=== PATIENT | female | born 1975 | race Caucasian/White ===

== ENCOUNTER 2020-03-23 12:45 | Outpatient (CLI) | payer OTHER, SELFPAY ==
[2020-03-23 13:35] LABS: Basophils Percent Auto 0.6 % (0.2-1.2); Eosinophils Absolute Auto 0.2 K/mm3 (0-0.3); Eosinophils Percent Auto 2.9 % (0-4.4); Hematocrit 29.7 % (37.0-47.0); Hemoglobin 7.7 g/dL (12.0-15.0); Immature Granulocyte Absolute 0.02 K/mm3 (0.00-0.031); Immature Granulocyte Percent A 0.3 % (0-0.5); Lymphocytes Absolute Auto 1.44 K/mm3 (0.9-3.2); Lymphocytes Percent Auto 23.2 % (18.3-44.2); Mean Corpuscular HGB Conc 25.9 g/dl (32-36); Mean Corpuscular Hemoglobin 20.3 pg (26-34); Mean Corpuscular Volume 78.4 fl (80-100); Mean Platelet Volume 11.1 fl (7.4-10.4); Monocytes Absolute Auto 0.4 K/mm3 (0.1-0.6); Monocytes Percent Auto 7.1 % (2.6-8.5); Neutrophils Absolute Auto 4.1 K/mm3 (1.3-6.7); Neutrophils Percent Auto 65.9 % (45.5-73.1); Platelet Count Result 302 k/mm3 (150-375); Red Blood Count 3.79 M/mm3 (4.2-5.4); Red Cell Distribution Width 27.3 % (11.5-14.5); White Blood Count 6.2 K/mm3 (4.5-10.0)
[2020-03-23 14:00] LABS: Platelet Estimate Adequate (Adequate)
[2020-03-23 14:01] LABS: Anisocytosis 2+ (NORMAL)
[2020-03-23 14:08] LABS: Iron 186 ug/dL (37-170)
== END 2020-03-23 12:46 | disposition home or self-care (01) ==
PROVIDERS: PCP Family Medicine; Visit Provider Family Medicine
DX: D50.9 Iron deficiency anemia, unspecified (principal)
CPT/HCPCS: 36415; 83540; 85025

== ENCOUNTER 2024-09-29 09:52 | Outpatient (CLI) | payer OTHER, SELFPAY ==
[2024-09-29 13:52] LABS: Hematocrit 28.2 % (37.0-47.0); Immature Platelet Fraction Pct 5.5 % (0.9-11.2); Mean Corpuscular HGB Conc 24.8 g/dl (32-36); Mean Corpuscular Hemoglobin 16.9 pg (26-34); Mean Corpuscular Volume 68.3 fl (80-100); Platelet Count Result 254 k/mm3 (150-375); Red Blood Count 4.13 M/mm3 (4.2-5.4); Red Cell Distribution Width 25.3 % (11.5-14.5); White Blood Count 8.1 K/mm3 (4.5-10.0)
[2024-09-29 15:20] LABS: Alanine Aminotransferase 21 U/L (6-35); Albumin Level 4.5 g/dL (3.5-5.1); Alkaline Phosphatase 64 U/L (38-126); Anion Gap 13 mmol/L (4-12); Aspartate Amino Transferase 28 U/L (14-36); Bilirubin,Total 0.7 mg/dL (0.2-1.3); Blood Urea Nitrogen 16 mg/dL (7-17); Calcium 9.7 mg/dL (8.4-10.2); Carbon Dioxide 29 mmol/L (22-30); Chloride 99 mmol/L (98-107); Cholesterol 166 mg/dL (0-200); Estimated Glomerular Filt Rate > 60; Glucose 97 mg/dL (65-110); HDL Direct 30 mg/dL; Potassium 4.2 mmol/L (3.4-5.0); Sodium 141 mmol/L (137-145); Triglycerides 141 mg/dL (<150)
[2024-09-29 15:31] LABS: LDL Cholesterol Direct 116 mg/dL
[2024-09-29 15:33] LABS: Iron 32 ug/dL (37-170)
[2024-09-29 15:43] LABS: Percent Iron Saturation 7 % (20-50)
[2024-09-29 15:55] LABS: Vitamin D 25 Hydroxy < 12.8 ng/mL
== END 2024-09-29 09:53 | disposition home or self-care (01) ==
PROVIDERS: PCP Family Medicine; Visit Provider Nurse Practitioner
DX: E55.9 Vitamin D deficiency, unspecified (principal); D50.0 Iron deficiency anemia secondary to blood loss (chronic); Z76.89 Persons encountering health services in other specified circumstances
CPT/HCPCS: 36415; 80053; 80061; 82306; 83540; 83550; 84443; 85027; 85055

== ENCOUNTER 2025-01-26 10:09 | Outpatient (CLI) | payer OTHER, SELFPAY ==
[2025-01-26 21:03] LABS: Hematocrit 36.5 % (37.0-47.0); Hemoglobin 9.3 g/dL (12.0-15.0); Mean Corpuscular HGB Conc 25.5 g/dl (32-36); Mean Corpuscular Hemoglobin 17.5 pg (26-34); Mean Corpuscular Volume 68.6 fl (80-100); Platelet Count Result 366 k/mm3 (150-375); Red Blood Count 5.32 M/mm3 (4.2-5.4); Red Cell Distribution Width 25.6 % (11.5-14.5); White Blood Count 8.1 K/mm3 (4.5-10.0)
[2025-01-26 22:00] LABS: Alanine Aminotransferase 31 U/L (6-35); Albumin Level 4.4 g/dL (3.5-5.1); Alkaline Phosphatase 64 U/L (38-126); Anion Gap 10 mmol/L (4-12); Aspartate Amino Transferase 46 U/L (14-36); Bilirubin,Total 0.5 mg/dL (0.2-1.3); Blood Urea Nitrogen 12 mg/dL (7-17); Calcium 9.5 mg/dL (8.4-10.2); Carbon Dioxide 30 mmol/L (22-30); Chloride 100 mmol/L (98-107); Cholesterol 204 mg/dL (0-200); Estimated Glomerular Filt Rate > 60; Glucose 105 mg/dL (65-110); HDL Direct 28 mg/dL; Potassium 4.2 mmol/L (3.4-5.0); Sodium 140 mmol/L (137-145); Total Protein 8.8 g/dL (6.3-8.2); Triglycerides 154 mg/dL (<150)
[2025-01-26 22:28] LABS: Iron 39 ug/dL (37-170)
[2025-01-26 22:38] LABS: Percent Iron Saturation 8 % (20-50)
[2025-01-26 23:02] LABS: LDL Cholesterol Direct 122 mg/dL
[2025-01-27 11:12] LABS: Hemoglobin A1C 5.2 % (<5.7)
[2025-01-28 13:08] LABS: Vitamin D 25 Hydroxy 18.6 ng/mL
== END 2025-01-26 10:10 | disposition home or self-care (01) ==
LOC: ANHGOSHLAB 10:10
PROVIDERS: PCP Family Medicine; Visit Provider Nurse Practitioner
DX: E78.5 Hyperlipidemia, unspecified (principal); I10 Essential (primary) hypertension; E55.9 Vitamin D deficiency, unspecified; D50.0 Iron deficiency anemia secondary to blood loss (chronic); R73.01 Impaired fasting glucose
CPT/HCPCS: 36415; 80053; 80061; 82306; 83036; 83540; 83550; 85027